=== PATIENT | female | born 1995 | race Hispanic/Latino ===

== ENCOUNTER 2019-06-21 13:00 | Emergency (ER) | payer SELFPAY ==
--- OUTSIDE RECORDS SUMMARY | 2019-06-21 13:03 | XMS REPORT ---
:1995 [facility] Address [address] [place] [address] Dr. Cedeno [address] [place] [id number] Care Team Providers Name Role Phone Unavailable Unavailable Unavailable Problems This patient has no known problems. Allergies, Adverse Reactions, Alerts This patient has no known allergies or adverse reactions. Medications This patient has no known medications.
[2019-06-21 14:11] LABS: Urine Blood NEGATIVE (NEG); Urine Glucose NEGATIVE (NEG); Urine Protein NEGATIVE (NEG); Urine pH 5.5 (5.0-7.0)
[2019-06-21 14:14] LABS: Absolute Lymphocytes (CBC) 3.4 K/uL (0.7-4.9); Basophils % 0.7 % (0-1.3); Hematocrit 37.1 % (36.0-45.0); Lymphocytes % 27.6 % (15.3-44.8); MPV 8.8 fL (7.6-11.3); RBC Red Blood Cell Count 4.34 M/uL (3.86-4.86)
[2019-06-21 14:23] LABS: Urine Bacteria <20 /HPF (<20); Urine RBC <5 /HPF (NONE SEEN)
[2019-06-21 14:44] LABS: BUN Blood Urea Nitrogen 9 mg/dL (7-18); Bicarbonate 27 mmol/L (21-32); Glucose Level 99 mg/dL (74-106); HCG, Quantitative 1547 mIU/mL (1-3); Sodium Level 141 mmol/L (136-145)
--- NOTE | 2019-06-21 15:38 | RAD REPORT ---
EXAM DESCRIPTION: US - Transvaginal OB - 06/21/2019 3:24 pm CLINICAL HISTORY: with pelvic pain COMPARISON: None. FINDINGS: The uterus measures 8 x 4 x 7 centimeters. . An irregularly shaped fluid collection measu ring 4.5 x 4.5 x 0.9 centimeters is present within the endometrium. A yolk sac is not not seen. A fet al pole is not visualized. A 4 millimeter round fluid collection also lies within the endometrium. Right and left ovary appear normal. . An adnexal mass is not noted. No significant free fluid is seen. IMPRESSION: Irregularly shaped fluid collection within the endometrium may represent a blighted ovum . Another consideration is that the 4 millimeter round fluid collection within the endometrium represen ts a gestational sac and the larger fluid collection represents a hematoma. The estimated gestational age would then be 5 weeks 1 day ASHA 02/20/2020. It is recommended that the patient have serial beta HCG levels as well as a follow-up ultrasound in 1 week for re-evaluation
--- NOTE | 2019-06-21 16:36 | EDPHYS ---
Physician Documentation [facility] Name: Elin Ramirez Age: 23 yrs Sex: Female : 1995 Arrival Date: 06/21/2019 Time: 13:08 Bed 24 Private MD: ED Physician Leonel Quintero HPI: 06/21 14:53 This 23 yrs old Female presents to ER via Ambulatory with complaints of pm1 Abdominal Pain, . 14:53 The patient presents with abdominal pain in the lower abdomen. Onset: The pm1 symptoms/episode began/occurred last night. The symptoms do not radiate. Associated signs and symptoms: Pertinent positives: some dysuria, Pertinent negatives: nausea, vomiting, and diarrhea, chest pain, fever, shortness of breath. The symptoms are described as crampy. Modifying factors: The symptoms are alleviated by nothing, the symptoms are aggravated by nothing. Severity of pain: in the emergency department the pain is actually worse. seen at a clinic prior to arrival but was sent to the ER for evaluation due to . Patient surprised that she is because she had a depo shot about 3 months ago. A0. 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 - Social history:: Smoking status: Patient denies any tobacco usage or history of. - Ebola Screening: : Patient negative for fever greater than or equal to 101.5 degrees Fahrenheit, and additional compatible Ebola Virus Disease symptoms Patient denies exposure to infectious person Patient denies travel to an Ebola-affected area in the 21 days before illness onset No symptoms or risks identified at this time. ROS: 14:53 Constitutional: Negative for fever, chills, and weight loss, Cardiovascular: Negative pm1 for chest pain, palpitations, and edema, Respiratory: Negative for shortness of breath, cough, wheezing, and pleuritic chest pain. 14:53 Back: Negative for injury and pain. 14:53 MS/Extremity: Negative for injury and deformity, Skin: Negative for injury, rash, and discoloration, Neuro: Negative for headache, weakness, numbness, tingling, and seizure. 14:53 Abdomen/GI: Positive for abdominal pain, Negative for nausea, vomiting, and diarrhea, constipation. 14:53 : Positive for burning with urination, Negative for urinary frequency, small amounts, flank pain. 14:53 All other systems are negative. Exam: 14:53 Constitutional: This is a well developed, well nourished patient who is awake, alert, pm1 and in no acute distress. Head/Face: Normocephalic, atraumatic. Neck: Trachea midline, no thyromegaly or masses palpated, and no cervical lymphadenopathy. Supple, full range of motion without nuchal rigidity, or vertebral point tenderness. No Meningismus. Chest/axilla: Normal chest wall appearance and motion. Nontender with no deformity. No lesions are appreciated. Cardiovascular: Regular rate and rhythm with a normal S1 and S2. No gallops, murmurs, or rubs. Normal PMI, no JVD. No pulse deficits. Respiratory: Lungs have equal breath sounds bilaterally, clear to auscultation and percussion. No rales, rhonchi or wheezes noted. No increased work of breathing, no retractions or nasal flaring. Abdomen/GI: Soft, non-tender, with normal bowel sounds. No distension or tympany. No guarding or rebound. No evidence of tenderness throughout. Back: No spinal tenderness. No costovertebral tenderness. Full range of motion. Skin: Warm, dry with normal turgor. Normal color with no rashes, no lesions, and no evidence of cellulitis. MS/ Extremity: Pulses equal, no cyanosis. Neurovascular intact. Full, normal range of motion. 14:53 Neuro: Orientation: is normal, Motor: is normal, moves all fours, Sensation: is normal, no obvious gross deficits. Vital Signs: 13:17 BP 116 / 74; Pulse 108; Resp 16; Temp 98.0; Pulse Ox 100% on R/A; Weight 63.5 kg; iw 16:54 BP 122 / 75; Pulse 85; Resp 18; Pulse Ox 97% on R/A; aj1 MDM: 13:28 Patient medically screened. pm1 14:53 Data reviewed: vital signs. Data interpreted: Pulse oximetry: on room air is 100 %. pm1 Interpretation: normal. 16:34 Counseling: I had a detailed discussion with the patient and/or guardian regarding: the pm1 historical points, exam findings, and any diagnostic results supporting the discharge/admit diagnosis, lab results, radiology results, the need for outpatient follow up, to return to the emergency department if symptoms worsen or persist or if there are any questions or concerns that arise at home. 06/21 13:28 Order name: Quantitative Hcg; Complete Time: 14:53 pm1 06/21 13:28 Order name: Abo/rh Typing; Complete Time: 14:39 pm1 06/21 13:28 Order name: Basic Metabolic Panel; Complete Time: 14:53 pm1 06/21 13:28 Order name: CBC with Diff pm1 06/21 13:28 Order name: Urine Microscopic Only; Complete Time: 14:34 pm1 06/21 14:07 Order name: Urine Dipstick--Ancillary (enter results); Complete Time: 14:34 eb 06/21 13:28 Order name: Urine Test (obtain specimen); Complete Time: 14:03 pm1 06/21 13:28 Order name: IV Saline Lock; Complete Time: 14:03 pm1 06/21 13:28 Order name: Labs collected and sent; Complete Time: 14:03 pm1 06/21 13:28 Order name: NPO; Complete Time: 14:04 pm06/21 13:28 Order name: Urine Dipstick-Ancillary (obtain specimen); Complete Time: 14:04 pm1 06/21 13:29 Order name: US Transvaginal Ob; Complete Time: 15:46 pm1 06/21 14:07 Order name: Urine --Ancillary (enter results); Complete Time: 14:34 eb 06/21 16:39 Order name: ABO/RH no charge; Complete Time: 10:06 EDMS Administered Medications: No medications were administered Disposition: 18:20 Co-signature as Attending Physician, Leonel Quintero MD. ma2 Disposition: 06/21/19 16:35 Discharged to Home. Impression: Threatened . - Condition is Stable. - Discharge Instructions: Threatened Miscarriage, Pelvic Rest. - Medication Reconciliation Form, Thank You Letter, Antibiotic Education, Prescription Opioid Use form. - Follow up: Emergency Department; When: As needed; Reason: Worsening of condition. Follow up: Private Physician; When: 2 - 3 days; Reason: Recheck today's complaints, Continuance of care, Re-evaluation by your physician. - Problem is new. - Symptoms have improved. Signatures: Dispatcher [employer] EDTeresita Redd RN RN aj1 Maida Lazcano RN RN iw Chadd Thomas, TIN CAN LABORER TIN CAN LABORER pm1 Leonel Quintero MD MD ma2 Corrections: (The following items were deleted from the chart) 16:55 16:35 06/21/2019 16:35 Discharged to Home. Impression: Threatened . Condition aj1 is Stable. Forms are Medication Reconciliation Form, Thank You Letter, Antibiotic Education, Prescription Opioid Use. Follow up: Emergency Department; When: As needed; Reason: Worsening of condition. Follow up: Private Physician; When: 2 - 3 days; Reason: Recheck today's complaints, Continuance of care, Re-evaluation by your physician. Problem is new. Symptoms have improved. pm1
--- NOTE | 2019-06-21 16:36 | ER ---
Nurse's Notes [facility] Name: Elin Ramirez Age: 23 yrs Sex: Female : 1995 Arrival Date: 06/21/2019 Time: 13:08 Bed 24 Private MD: Diagnosis: Threatened Presentation: 06/21 13:13 Presenting complaint: Patient states: yesterday had a lot of pain in her stomach, went iw to clinic but was told she needed to come to ER because her UPT was positive, pt stopped control 3-4 months ago and has had irregular periods since then, pt c/o RLQ since yesterday, denies pain with urination, denies vomiting or diarrhea. Transition of care: patient was not received from another setting of care. Onset of symptoms was June 20, 2019. Risk Assessment: Do you want to hurt yourself or someone else? Patient reports no desire to harm self or others. Initial Sepsis Screen: Does the patient meet any 2 criteria? No. Patient's initial sepsis screen is negative. Does the patient have a suspected source of infection? No. Patient's initial sepsis screen is negative. Care prior to arrival: None. 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 - Social history:: Smoking status: Patient denies any tobacco usage or history of. - Ebola Screening: : Patient negative for fever greater than or equal to 101.5 degrees Fahrenheit, and additional compatible Ebola Virus Disease symptoms Patient denies exposure to infectious person Patient denies travel to an Ebola-affected area in the 21 days before illness onset No symptoms or risks identified at this time. Screenin:50 Abuse screen: Denies threats or abuse. Denies injuries from another. Nutritional aj1 screening: No deficits noted. Tuberculosis screening: No symptoms or risk factors identified. 16:54 Fall Risk None identified. aj1 Assessment: 13:50 General: Appears in no apparent distress. comfortable, Behavior is calm, cooperative, aj1 appropriate for age. Pain: Complains of pain in right lower quadrant. Neuro: Level of Consciousness is awake, alert, obeys commands. Cardiovascular: Patient's skin is warm and dry. Respiratory: Airway is patent Respiratory effort is even, unlabored, Respiratory pattern is regular, symmetrical. GI: Abdomen is round non-distended, Bowel sounds present X 4 quads. Abd is soft and non tender X 4 quads. : No signs and/or symptoms were reported regarding the genitourinary system. EENT: No signs and/or symptoms were reported regarding the EENT system. Derm: No signs and/or symptoms reported regarding the dermatologic system. Skin is pink, warm \T\ dry. normal. Musculoskeletal: No signs and/or symptoms reported regarding the musculoskeletal system. Circulation, motion, and sensation intact. 15:33 Reassessment: Patient appears in no apparent distress at this time. No changes from aj1 previously documented assessment. Patient and/or family updated on plan of care and expected duration. Pain level reassessed. Patient is alert, oriented x 3, equal unlabored respirations, skin warm/dry/pink. 16:54 Reassessment: Patient appears in no apparent distress at this time. No changes from aj1 previously documented assessment. Patient and/or family updated on plan of care and expected duration. Pain level reassessed. Patient is alert, oriented x 3, equal unlabored respirations, skin warm/dry/pink. Vital Signs: 13:17 BP 116 / 74; Pulse 108; Resp 16; Temp 98.0; Pulse Ox 100% on R/A; Weight 63.5 kg; iw 16:54 BP 122 / 75; Pulse 85; Resp 18; Pulse Ox 97% on R/A; aj1 ED Course: 13:08 Patient arrived in ED. mr 13:17 Triage completed. iw 13:18 Arm band placed on. iw 13:19 Chadd Thomas NP is PHCP. pm1 13:19 Leonel Quintero MD is Attending Physician. pm1 13:48 Teresita Rothman RN is Primary Nurse. aj1 13:50 Patient has correct armband on for positive identification. aj1 13:50 No provider procedures requiring assistance completed. aj1 14:05 Initial lab(s) drawn, by me, sent to lab. Inserted saline lock: 20 gauge in right lt1 antecubital area, using aseptic technique. 14:13 Radiology exam delayed due to test not completed at this time. sg3 15:24 Ultrasound completed. Patient tolerated well. sg3 15:24 US Transvaginal Ob In Process Unspecified. EDMS 16:54 IV discontinued, intact, bleeding controlled, No redness/swelling at site. Pressure aj1 dressing applied. Administered Medications: No medications were administered Outcome: 16:35 Discharge ordered by MD. pm1 16:54 Discharged to home ambulatory. aj1 16:54 Condition: good 16:54 Discharge instructions given to patient, Instructed on discharge instructions, follow up and referral plans. Demonstrated understanding of instructions, follow-up care. 16:55 Patient left the ED. aj1 Signatures: Dispatcher [employer] EDMS Teresita Rothman, RN RN aj1 Suma Rodriguez Irene, RN RN iw Chadd Thomas, POULTRY SLAUGHTERER POULTRY SLAUGHTERER pm1 Bia Walker sg3 Magda Gamez lt1
[2019-06-21 18:16] VITALS: TEMP 98
[2019-06-21 18:20] VITALS: BP 122/75; O2SAT 97
== END 2019-06-21 16:55 | disposition home or self-care (01) ==
LOC: ER 13:00
DX: O20.0 Threatened abortion (principal); Z3A.01 Less than 8 weeks gestation of pregnancy
CPT/HCPCS: 36415; 76817; 80048; 81003; 81015; 81025; 84702; 85025; 86900; 86901; 99283